=== PATIENT | female | born 1990 | race Caucasian/White ===

== ENCOUNTER 2024-10-11 13:06 | Emergency (ER) | payer OTHER, SELFPAY ==
[2024-10-11 13:11] VITALS: BP 140/77; PULSE 77; RESP 16; TEMP 36.4; O2SAT 100
--- NOTE | 2024-10-11 13:22 | ED_ITS ---
HPI - Nausea/Vomiting/Diarrhea General Chief complaint: Nausea/Vomiting/Diarrhea Stated complaint: N/V/D-abdominal pain Time Seen by Provider: 10/11/24 13:13 History of Present Illness HPI Narrative: 33-year-old female presenting to the emergency department with nausea, vomiting, epigastric discomfort and diarrhea. She states that this is been a chronic issue for some years now. Occasionally gets relief with hot showers. States that she has been vomiting for last 3 days and then started developing some abdominal discomfort and the diarrhea started today and describes as soft stools. No fever chills. No recent antibiotic use. History of C diff in the remote past. No chest discomfort shortness of breath, no traumatic injuries. Denies chance of . Denies any urinary complaints. Was otherwise in her normal state of health. Endorses marijuana use. Related Data Allergies Allergy/AdvReac Type Severity Reaction Status Date / Time No Known Allergies Allergy Verified 10/11/24 13:07 Review of Systems 2 Review of Systems: As reviewed above in HPI Exam 2 Narrative: GENERAL: Retching into an emesis basin with clear mucous. Uncomfortable appearing HEAD: [Normocephalic, atraumatic.] EYES: [PERRLA and EOMI.] ENT: Nares clear, no rhinorrhea or epistaxis. Mucous membranes moist. NECK: Supple. CHEST: [Clear to auscultation. No respiratory distress.] HEART: [Regular rate and rhythm]. No murmur heard. [Normal peripheral pulses.] ABDOMEN: [Soft, nondistended], minimally tender in the epigastric region, no Winters's tenderness or McBurney's tenderness. No signs of peritonitis, [No rigidity or guarding] EXTREMITIES: Normal range of motion. [No edema.] SKIN: Warm, dry, no rash. NEURO: [No focal deficits]. Alert and oriented [x3.] PSYCH: [Normal mood and affect.] Course Vital Signs Vital signs: Vital Signs Temperature 36.4 C 10/11/24 13:11 Pulse Rate 77 10/11/24 13:11 Respiratory Rate 16 10/11/24 13:11 Blood Pressure 140/77 10/11/24 13:11 Pulse Oximetry 100 10/11/24 13:11 Temperature 36.9 C 10/11/24 16:02 Pulse Rate 83 10/11/24 16:02 Respiratory Rate 17 10/11/24 16:02 Blood Pressure 141/86 H 10/11/24 16:02 Pulse Oximetry 100 10/11/24 16:02 MDM - Nausea/Vomiting/Diarrhea MDM Narrative Medical decision making narrative: 33-year-old female presenting to the emergency department with nausea, vomiting, epigastric discomfort and diarrhea. She states that this is been a chronic issue for some years now. Occasionally gets relief with hot showers. States that she has been vomiting for last 3 days and then started developing some abdominal discomfort and the diarrhea started today and describes as soft stools. No fever chills. No recent antibiotic use. History of C diff in the remote past. No chest discomfort shortness of breath, no traumatic injuries. Denies chance of . Denies any urinary complaints. Was otherwise in her normal state of health. Endorses marijuana use. Patient is retching and having some clear emesis but not any acute respiratory distress, soft minimally tender abdominal examination with no signs of peritonitis. No rebound or guarding. Normal vital signs and tachypnea, tachycardia or fever. Given patient's symptomatology and complaints that sound like a recurrence of her chronic nausea and vomiting/abdominal discomfort as well as relief with hot showers and marijuana use this sounds like potentially cyclic vomiting syndrome versus cannabinoid hyperemesis syndrome. Other intra-abdominal etiologies not excluded such as infectious pathology such as pancreatitis, appendicitis, cholecystitis but less likely. Will trial a antiemetic treatment with Haldol 2.5 mg IV as well as Pepcid and D5 LR for hydration and replenishment electrolytes. Laboratory studies obtained and placed on patient monitor with repeat evaluations. Patient had complete symptomatic resolution after the Haldol. No longer nauseous or retching. She feels significantly improved. Given fluids and rehydration. Laboratory studies show some slight hemoconcentration reactive leukocytosis of 12.5 but no signs of active infection. She is afebrile with normal vital signs on repeat. Electrolytes are unremarkable. Normal kidney function LFTs. Urinalysis with no signs of infection. Negative test. Patient re-evaluated doing well. Discussed cyclic vomiting syndrome any cannabis hyperemesis as potential diagnoses with her and she was aware that she has a history of CVS. Patient comfortable with the plan for going home with GI follow-up as needed and given a prescription for Zofran and Bentyl. Medical Records Attestation: I reviewed the patient's medical records. Lab Data Attestation: I reviewed the patient's lab results. 10/11/24 13:31 10/11/24 13:31 Labs: Lab Results 10/11/24 10/11/24 10/11/24 Range/Units 13:31 13:36 14:07 WBC 12.5 H (4.5-10.0) K/mm3 RBC 5.02 (4.2-5.4) M/mm3 Hgb 14.7 (12.0-15.0) g/dL Hct 43.1 (37.0-47.0) % MCV 85.9 (80-100) fl MCH 29.3 (26-34) pg MCHC 34.1 (32-36) g/dl RDW 12.1 (11.5-14.5) % Plt Count 382 H (150-375) k/mm3 MPV 9.9 (7.4-10.4) fl Immature Gran % (Auto) 0.3 (0-0.5) % Neut % (Auto) 87.0 H (45.5-73.1) % Lymph % (Auto) 9.4 L (18.3-44.2) % [place] % (Auto) 2.4 L (2.6-8.5) % Eos % (Auto) 0.3 (0-4.4) % Baso % (Auto) 0.6 (0.2-1.2) % Lymph # (Auto) 1.17 (0.9-3.2) K/mm3 [place] # (Auto) 0.3 (0.1-0.6) K/mm3 Eos # (Auto) 0.0 (0-0.3) K/mm3 Baso # (Auto) 0.1 (0.0-0.1) K/mm3 Abs Immat Gran (auto) 0.04 H (0.00-0.031) K/mm3 Absolute Neuts (auto) 10.9 H (1.3-6.7) K/mm3 Absolute Nucleated RBC 0.000 (0.0-0.012) K/mm3 Nucleated RBC % 0.0 (0.0-0.2) % Sodium 134 L (137-145) mmol/L Potassium 3.6 (3.4-5.0) mmol/L Chloride 99 (98-107) mmol/L Carbon Dioxide 25 (22-30) mmol/L Anion Gap 10 (4-12) mmol/L BUN 12 (7-17) mg/dL Creatinine 0.69 L (0.7-1.0) mg/dL Estim Creat Clear Calc 84 ml/min Estimated GFR > 60 (59 - ) Glucose 117 H (65-110) mg/dL POC Capillary Glucose 116 H (65-105) mg/dl Calcium 9.7 (8.4-10.2) mg/dL Total Bilirubin 0.7 (0.2-1.3) mg/dL AST 27 (14-36) U/L ALT 18 (6-35) U/L Alkaline Phosphatase 88 (38-126) U/L Total Protein 8.3 H (6.3-8.2) g/dL Albumin 5.0 (3.5-5.1) g/dL Lipase 72 (23-300) U/L Urine Color Yellow (Yellow) Urine Appearance Cloudy H (Clear) Urine pH >=9.0 H (5.0-9.0) Ur Specific [place] 1.019 (1.001-1.035) Urine Protein 1+ H (Negative) mg/dL Urine Glucose (UA) Trace H (Negative) mg/dL Urine Ketones Trace H (Negative) mg/dL Ur Blood (Man) Negative (Negative) Urine Nitrate Negative (Negative) Urine Bilirubin Negative (Negative) Urine Urobilinogen 0.2 (<2.0) mg/dL Leukocyte Esterase Rfl Trace H (Negative) VITA/UL Urine RBC 3-5 H (0-2) /hpf Urine WBC 0-5 (0-3) /hpf Ur Squamous Epith Cells Occasional (Few) /hpf Urine Bacteria Rare /hpf Urine Casts 0-2 POC Urine HCG, Qual (Negative) 10/11/24 10/11/24 Range/Units 14:14 14:33 WBC (4.5-10.0) K/mm3 RBC (4.2-5.4) M/mm3 Hgb (12.0-15.0) g/dL Hct (37.0-47.0) % MCV (80-100) fl MCH (26-34) pg MCHC (32-36) g/dl RDW (11.5-14.5) % Plt Count (150-375) k/mm3 MPV (7.4-10.4) fl Immature Gran % (Auto) (0-0.5) % Neut % (Auto) (45.5-73.1) % Lymph % (Auto) (18.3-44.2) % [place] % (Auto) (2.6-8.5) % Eos % (Auto) (0-4.4) % Baso % (Auto) (0.2-1.2) % Lymph # (Auto) (0.9-3.2) K/mm3 [place] # (Auto) (0.1-0.6) K/mm3 Eos # (Auto) (0-0.3) K/mm3 Baso # (Auto) (0.0-0.1) K/mm3 Abs Immat Gran (auto) (0.00-0.031) K/mm3 Absolute Neuts (auto) (1.3-6.7) K/mm3 Absolute Nucleated RBC (0.0-0.012) K/mm3 Nucleated RBC % (0.0-0.2) % Sodium (137-145) mmol/L Potassium (3.4-5.0) mmol/L Chloride (98-107) mmol/L Carbon Dioxide (22-30) mmol/L Anion Gap (4-12) mmol/L BUN (7-17) mg/dL Creatinine (0.7-1.0) mg/dL Estim Creat Clear Calc ml/min Estimated GFR (59 - ) Glucose (65-110) mg/dL POC Capillary Glucose 295 H (65-105) mg/dl Calcium (8.4-10.2) mg/dL Total Bilirubin (0.2-1.3) mg/dL AST (14-36) U/L ALT (6-35) U/L Alkaline Phosphatase (38-126) U/L Total Protein (6.3-8.2) g/dL Albumin (3.5-5.1) g/dL Lipase (23-300) U/L Urine Color (Yellow) Urine Appearance (Clear) Urine pH (5.0-9.0) Ur Specific [place] (1.001-1.035) Urine Protein (Negative) mg/dL Urine Glucose (UA) (Negative) mg/dL Urine Ketones (Negative) mg/dL Ur Blood (Man) (Negative) Urine Nitrate (Negative) Urine Bilirubin (Negative) Urine Urobilinogen (<2.0) mg/dL Leukocyte Esterase Rfl (Negative) VITA/UL Urine RBC (0-2) /hpf Urine WBC (0-3) /hpf Ur Squamous Epith Cells (Few) /hpf Urine Bacteria /hpf Urine Casts POC Urine HCG, Qual Negative (Negative) Discharge Plan Discharge Clinical Impression: Cyclic vomiting syndrome Patient Disposition: Home Condition: Stable Instructions: Antibiotic Form, Clear Liquid Diet (ED), Acute Nausea and Vomiting (ED), Cyclic Vomiting Syndrome (ED) Additional Instructions: Your symptoms are consistent with cyclic vomiting syndrome or cannabinoid hyperemesis syndrome. Laboratory studies are reassuring. Refrain from smoking marijuana for the next several weeks to months to see if that helps with the triggers. We will send you home with some Bentyl and Zoan as needed for symptom control at home. Follow-up with your primary doctor and GI doctor as needed. Return with any recurrence or emergent concerns. Patient Language: [place] Island[place] Prescriptions: New dicyclomine 20 mg tablet 20 mg PO TID PRN (Reason: abdominal pain) Qty: 14 0RF ondansetron 4 mg tablet,disintegrating 4 mg PO Q8H PRN (Reason: nausea and vomiting) Qty: 14 0RF Follow-up/Referrals: PHYSICIAN,[facility] [Primary Care Provider] - Time of Disposition: 15:26
[2024-10-11] MEDS: FAMOTIDINE 20 MG/2 ML VIAL IV PUSH (13:29)
[2024-10-11] MEDS: HALOPERIDOL LACTATE 5 MG/ML VIAL 2.5 MG IV PUSH (13:32)
[2024-10-11] MEDS: DEXTROSE 5%/LACTATED RINGERS 1,000 ML 1000 ML IV CONT (13:37)
--- NOTE | 2024-10-11 13:40 | PC.NURSE ---
Pt states unable to urinate at this time
[2024-10-11 13:41] LABS: Hematocrit 43.1 % (37.0-47.0); Hemoglobin 14.7 g/dL (12.0-15.0); Immature Granulocyte Percent A 0.3 % (0-0.5); Lymphocytes Absolute Auto 1.17 K/mm3 (0.9-3.2); Mean Corpuscular HGB Conc 34.1 g/dl (32-36); Mean Corpuscular Hemoglobin 29.3 pg (26-34); Mean Corpuscular Volume 85.9 fl (80-100); Nucleated Red Blood Cells Absolute Auto 0.000 K/mm3 (0.0-0.012); Nucleated Red Blood Cells Perc 0.0 % (0.0-0.2); Platelet Count Result 382 k/mm3 (150-375); Red Blood Count 5.02 M/mm3 (4.2-5.4); White Blood Count 12.5 K/mm3 (4.5-10.0)
[2024-10-11 13:54] VITALS: BP 114/67; BP 117/73; BP 119/75; PULSE 69; PULSE 74; PULSE 78
[2024-10-11 13:55] VITALS: BP 117/83; PULSE 90; RESP 16; O2SAT 98
[2024-10-11 14:00] LABS: Alanine Aminotransferase 18 U/L (6-35); Albumin Level 5.0 g/dL (3.5-5.1); Alkaline Phosphatase 88 U/L (38-126); Anion Gap 10 mmol/L (4-12); Aspartate Amino Transferase 27 U/L (14-36); Bilirubin,Total 0.7 mg/dL (0.2-1.3); Blood Urea Nitrogen 12 mg/dL (7-17); Calcium 9.7 mg/dL (8.4-10.2); Carbon Dioxide 25 mmol/L (22-30); Chloride 99 mmol/L (98-107); Estimated CRCL calculation 84 ml/min; Estimated Glomerular Filt Rate > 60; Glucose 117 mg/dL (65-110); Lipase 72 U/L (23-300); Potassium 3.6 mmol/L (3.4-5.0); Sodium 134 mmol/L (137-145); Total Protein 8.3 g/dL (6.3-8.2)
[2024-10-11 14:17] LABS: BEDSIDEPREGUCG Negative (Negative)
[2024-10-11 14:29] LABS: Add Urine Microscopic? YES; Appearance Urine Cloudy (Clear); Glucose Urine UA Trace mg/dL (Negative); Leukocyte Esterase Ur Trace LEU/UL (Negative); Nitrate Urine Negative (Negative); Non Pathogenic Casts 0-2; Specific Grav Ur 1.019 (1.001-1.035)
[2024-10-11 14:36] VITALS: BP 117/83; PULSE 84; RESP 16; O2SAT 100
--- NOTE | 2024-10-11 14:38 | PC.NURSE ---
EDP aware of pt blood glucose
[2024-10-11 16:02] VITALS: BP 141/86; PULSE 83; RESP 17; TEMP 36.9; O2SAT 100
== END 2024-10-11 16:04 | disposition home or self-care (01) ==
PROVIDERS: Emergency Provider Student in an Organized Health Care Education/Training Program
DX: R11.15 Cyclical vomiting syndrome unrelated to migraine (principal)
CPT/HCPCS: 36415; 80053; 81001; 81025; 82948; 83690; 85025; 96361; 96374; 96375; 99284; J1630; J7121

== ENCOUNTER 2025-01-10 09:08 | Emergency (ER) | payer OTHER, SELFPAY ==
[2025-01-10 09:15] VITALS: BP 111/60; PULSE 65; RESP 18; TEMP 37.1; O2SAT 98
--- NOTE | 2025-01-10 09:28 | ED.URI ---
HPI - URI/Sore Throat General Chief Complaint: Upper Respiratory Infection Stated Complaint: congestion/sore throat Time Seen by Provider: 01/10/25 09:15 Source: patient and RN notes reviewed Mode of arrival: ambulatory Limitations: no limitations History of Present Illness HPI Narrative: 34-year-old female presents Express Care complaining of upper respiratory symptoms for approximately 10 days. Patient reports cough, congestion, sinus pressure, mucopurulent nasal drainage, and intermittent sore throat. Patient says symptoms are not getting any better. Patient has been using Benadryl, Zyrtec, ibuprofen with some relief. Patient denies any fevers, body eczema chills, nausea, vomiting, diarrhea, abdominal pain, chest pain, shortness of breath, urinary symptoms, or any other symptoms. Patient denies any significant past medical history. Related Data Allergies Allergy/AdvReac Type Severity Reaction Status Date / Time No Known Allergies Allergy Verified 10/11/24 13:07 Review of Systems Review of Systems: CONSTITUTIONAL: Denies fever, body aches, chills, body aches, or sweats. EYES: Denies visual changes, redness, or discharge. ENT: Positive for sinus pressure, congestion, sore throat. Negative for rhinorrhea or otalgia. CARDIOVASCULAR: Denies chest pain, palpitations, or edema. RESPIRATORY: Positive for cough. Negative for dyspnea or wheezing. GASTROINTESTINAL: Denies abdominal pain, nausea, vomiting, or diarrhea. GENITOURINARY: Denies dysuria or hematuria. SKIN: Denies rash or itching. MUSCULOSKELETAL: Denies back pain, joint pain, or myalgia. NEUROLOGIC: Denies headache, numbness, or weakness. PSYCHIATRIC: Denies anxiety or depression. All other systems reviewed are negative, except as documented in HPI. PMFSH Comments At the time of my signature, I reviewed and agree with the nursing past medical, surgical, social, and family history. There is no relevant family history pertinent to the patient complaint. Exam Narrative: GENERAL: This is a well-nourished, well-developed adult, in no apparent distress. They are non ill-appearing, nontoxic appearing. HEAD: normocephalic, atraumatic. EYES: Sclera clear/white. Vision is grossly intact. Conjunctiva normal bilaterally. Extraocular movements intact. EARS: External ears normal, auditory canals clear and without drainage, TMs without erythema or perforation. Hearing grossly intact. NOSE: External nose normal with no obvious nasal discharge, nasal turbinates erythematous with exudate present, no rhinorrhea. Maxillary and frontal sinus tenderness to palpation. THROAT: Mucous membranes moist, posterior pharynx is edematous without erythema, without exudate. Uvula is midline. Postnasal drip present. NECK: Neck supple, mild tender cervical lymphadenopathy, no masses or thyromegaly. CARDIOVASCULAR: Regular rate and rhythm without murmurs, gallops, or rubs. RESPIRATORY: Clear to auscultation. Breath sounds equal bilaterally. No wheezes, rales, or rhonchi. SKIN: warm, Dry, intact with no suspicious lesions or rash, good texture and turgor. NEURO: awake, alert, and oriented to person, place and time. There were no obvious focal neurologic abnormalities. EXTREMITIES: No joint tenderness, effusion, or edema noted. BACK: Nontender without deformity. Course Course Emergency Course: Portions of this record may have been created with voice recognition software Level of Care: Express Care Visit Vital Signs Vital signs: Vital Signs Temperature 98.7 F 01/10/25 09:15 Pulse Rate 65 01/10/25 09:15 Respiratory Rate 18 01/10/25 09:15 Blood Pressure 111/60 01/10/25 09:15 Pulse Oximetry 98 01/10/25 09:15 Oxygen Delivery Room Air 01/10/25 09:15 Temperature 98.7 F 01/10/25 09:15 Pulse Rate 65 01/10/25 09:15 Respiratory Rate 18 01/10/25 09:15 Blood Pressure 111/60 01/10/25 09:15 Pulse Oximetry 98 01/10/25 09:15 Oxygen Delivery Room Air 01/10/25 09:15 MDM - URI/Sore Throat MDM Narrative Medical decision making narrative: Patient likely has bacterial sinusitis given length of symptoms, will treat her with Augmentin. Discussed physical exam findings. Advised supportive measures and signs/symptoms to go to the ER. Pt is appropriate for outpt treatment and f/u. Differential Diagnosis Differential diagnosis: Likely upper respiratory infection, otitis media, sinusitis, viral infection and pharyngitis Discharge Plan Discharge Clinical Impression: Sinusitis Qualifiers: Sinusitis location: unspecified location Chronicity: acute Recurrence: non-recurrent Qualified Code(s): J01.90 - Acute sinusitis, unspecified Patient Disposition: Home Condition: Stable Instructions: Antibiotic Form, Sinusitis (ED) Additional Instructions: Take the antibiotics as directed and complete the course even if you start to feel better. You may use a Neti pot saline rinse 3 times a day with lukewarm distilled water Continue to take Tylenol or Motrin for pain or fevers. Follow instructions on the bottle. Use a humidifier or vaporizer at night. Drink plenty of water. 8-10 glasses per day. Use flonase 2 times per day for 5 days then as needed Take mucinex 2 times per day and be sure to take with 8oz of water. Follow up with Primary provider in 3-5 days Please go to the ER if he develops any difficulty breathing, chest pain, vomiting, fevers, worsening symptoms, or any other concerns Patient Language: [place] Prescriptions: New amoxicillin-pot clavulanate 875-125 mg tablet 1 tablet PO Q12H 7 Days Qty: 14 0RF No Action dicyclomine 20 mg tablet 20 mg PO TID PRN (Reason: abdominal pain) Qty: 14 0RF ondansetron 4 mg tablet,disintegrating 4 mg PO Q8H PRN (Reason: nausea and vomiting) Qty: 14 0RF Follow-up/Referrals: PHYSICIAN,[employer] REPAIRER [Primary Care Provider, Internal Medicine] Time of Disposition: 09:28
== END 2025-01-10 09:31 | disposition home or self-care (01) ==
DX: J01.90 Acute sinusitis, unspecified (principal)
CPT/HCPCS: 99213; G0463